=== PATIENT | male | born 1985 | race Caucasian/White ===

== ENCOUNTER 2025-03-19 14:24 | Emergency (ER) | payer OTHER | END 2025-03-19 16:10 | disposition home or self-care (01) | LOC: MW.ED 14:24 | DX: H66.92 Otitis media, unspecified, left ear (principal); I10 Essential (primary) hypertension; Z75.3 Unavailability and inaccessibility of health-care facilities; Z88.8 Allergy status to other drugs, medicaments and biological substances; Z79.899 Other long term (current) drug therapy; Z90.49 Acquired absence of other specified parts of digestive tract | CPT/HCPCS: 87651; 96374; 99283; J1100 ==

== ENCOUNTER 2025-05-11 18:40 | Emergency (ER) | payer OTHER ==
[2025-05-11] MEDS ORDERED: Sodium Chloride 0.9% 2.5 ML Syringe FLUSH PRN (18:53)
[2025-05-11] MEDS ORDERED: Sodium Chloride 0.9% 10 ML Syringe FLUSH PRN (18:53)
[2025-05-11 18:56] LABS: BASOPHILS ABSOLUTE AUTO 0.08 K/uL (0.00-0.20); BASOPHILS PERCENT AUTO 0.4 % (0.0-1.0); EOSINOPHILS ABSOLUTE AUTO 0.30 K/uL (0.00-0.45); EOSINOPHILS PERCENT AUTO 1.6 % (0.0-6.0); IMMATURE GRAN ABSOLUTE AUTO 0.09 K/uL (0.00-0.05); IMMATURE GRAN PERCENT AUTO 0.5 % (0.0-0.4); LYMPHOCYTES ABSOLUTE AUTO 4.12 K/uL (1.00-4.80); LYMPHOCYTES PERCENT AUTO 21.4 % (24.0-44.0); MEAN PLATELET VOLUME 8.6 fL (9.4-12.4); MONOCYTES ABSOLUTE AUTO 1.42 K/uL (0.00-0.80); MONOCYTES PERCENT AUTO 7.4 % (0.0-8.0); NEUTROPHILS ABSOLUTE AUTO 13.28 K/uL (1.80-7.70); NEUTROPHILS PERCENT AUTO 68.7 % (41.0-71.0); NRBC ABSOLUTE 0.00 K/uL (0.00-0.02); NRBC PERCENT 0.0 /100WBC (0.0-0.2); PLATELET COUNT,PLT 340 K/uL (150-400); RED BLOOD CELL COUNT 5.03 M/uL (4.52-5.90); WHITE BLOOD CELL COUNT,WBC 19.29 K/uL (3.9-11.3)
[2025-05-11] MEDS: Alum Hydrox/Mag Hydrox/Simeth 15 ML, Metoclopramide 5 MG, Lidocaine 2% 5 ML PO ONE (18:59)
[2025-05-11] MEDS: Pantoprazole 40 MG in Sodium Chloride 0.9% 10 ML IVPUSH ONE (19:00)
[2025-05-11 19:20] LABS: A/G RATIO 1.1 (0.9-1.6); ALANINE AMINOTRANSFERASE,ALT 48.0 IU/L (14-63); ASPARTATE AMNIOTRANSFERASE,AST 133.0 IU/L (15-37); BILIRUBIN TOTAL 0.3 mg/dL (0.2-1.0); BLOOD UREA NITROGEN,BUN 25.0 mg/dL (7.0-18.0); CARBON DIOXIDE,CO2 26.3 mmol/L (21.0-32.0); CHLORIDE,CL 103.0 mmol/L (98-107); CREATININE 1.5 mg/dL (0.8-1.3); EST CRCL DRUG DOSING (CG) 68.94 mL/min; GLUCOSE RANDOM 117.0 mg/dL (74-106); POTASSIUM,K 4.1 mmol/L (3.5-5.1); PRO B-TYPE NATRIUR PEPT,BNPPRO 521.0 pg/mL (0-125); PROTEIN TOTAL,TP 7.1 g/dL (6.4-8.2); SODIUM,NA 140.0 mmol/L (136-148)
[2025-05-11 19:21] LABS: ESTIMATED GFR 61.0 mL/min (>60)
[2025-05-11] MEDS: Ondansetron 4 MG/2 ML SDV IVPUSH ONE (19:40)
[2025-05-11] MEDS: Heparin Sodium 5,000 Units/ML Vial IVPUSH ONE (19:52)
[2025-05-11] MEDS: Heparin Sodium/0.45% NaCl 25,000 UNITS/250 ML BAG IV SCH (19:55)
[2025-05-11 20:07] LABS: CHOLESTEROL HDL 31.0 mg/dL (40-60); CHOLESTEROL LDL CALCULATED 94.0 mg/dL (60-180); CHOLESTEROL TOTAL 177.0 mg/dL (50-200); VLDL CHOLESTEROL 51.0 mg/dL (5-55)
[2025-05-11] MEDS: Iopamidol 755 MG/ML 500 ML Multipack Bottle IVPUSH ONE (20:48)
== END 2025-05-11 21:27 ==
LOC: MW.ED 18:40
DX: I21.4 Non-ST elevation (NSTEMI) myocardial infarction (principal); R79.89 Other specified abnormal findings of blood chemistry; I10 Essential (primary) hypertension; K21.9 Gastro-esophageal reflux disease without esophagitis; F17.200 Nicotine dependence, unspecified, uncomplicated; Z88.8 Allergy status to other drugs, medicaments and biological substances; Z79.82 Long term (current) use of aspirin; Z79.899 Other long term (current) drug therapy; Z90.49 Acquired absence of other specified parts of digestive tract; Z87.74 Personal history of (corrected) congenital malformations of heart and circulatory system
CPT/HCPCS: 36415; 71045; 71275; 80053; 80061; 82550; 83690; 83735; 83880; 84484; 85025; 85730; 87426; 93005; 96365; 96366; 96375; 99285; A9270; J1644; J2270; J2405; J2470; J3490; J7030; Q9967; J1171